=== PATIENT | male | born 1975 | race Caucasian/White ===

== ENCOUNTER 2021-04-11 05:29 | Observation (INO) ==
[2021-04-11] MEDS: Nitroglycerin 0.4 MG TAB.SUBL SL PRN ×4 (06:07→21:28)
[2021-04-11 06:08] LABS: Basophils # 0.1 K/mcL (0.0-0.2); Basophils % 0.9 %; Eosinophils # 0.2 K/mcL (0.0-0.6); Eosinophils % 3.4 %; Hematocrit 40.7 % (37.5-50.1); Immature Granulocytes % 0.4 % (0-4); Lymphocytes # 2.4 K/mcL (0.6-4.6); Lymphocytes % 35.5 %; Mean Corpuscular HGB Conc 34.4 g/dL (31.6-35.5); Mean Corpuscular Hemoglobin 29.7 pg (28.0-33.3); Mean Corpuscular Volume 86.4 fL (83.0-100.0); Mean Platelet Volume 10.4 fL (9.4-12.4); Monocytes # 0.7 K/mcL (0.0-1.3); Neutrophils # 3.4 K/mcL (1.6-8.9); Platelet Count 213 K/mcL (140-400); Red Blood Count 4.71 M/mcL (4.19-5.50); Red Cell Distribution Width 11.9 % (11.5-14.5); Segmented Neutrophils % 49.8 %; White Blood Count 6.8 K/mcL (4.3-11.1)
[2021-04-11 06:23] LABS: BUN/Creatinine Ratio 14 (6-26); Blood Urea Nitrogen 10 mg/dL (6-20); Calcium 9.2 mg/dL (8.6-10.3); Carbon Dioxide 24 mEq/L (23-29); Chloride 100 mEq/L (98-107); Glucose 318 mg/dL (70-105); Osmolality,Calculated 287 (280-300); Potassium 3.8 mEq/L (3.5-5.1); Sodium 133 mEq/L (136-145); Troponin I < 0.03 ng/mL (< 0.04); eGFR For African Americans > 60 (> 60); eGFR For Non-African Americans > 60 (> 60)
[2021-04-11] MEDS ORDERED: Isovue-370 500 ML BOTTLE IVP ONE (06:33)
[2021-04-11] MEDS ORDERED: Naloxone 0.4 MG/ML INJ IVP PRN (11:06)
[2021-04-11] MEDS ORDERED: Morphine Sulfate 2 MG/ML SYRINGE IVP ONE (12:02)
[2021-04-11] MEDS ORDERED: *HR* Dextrose 50 % in Water (Vial) 50 ML VIAL IVP PRN (13:51)
[2021-04-11] MEDS ORDERED: Dextrose Gel 15 GM/37.5 ML TUBE PO PRN ×2 (13:51)
[2021-04-11] MEDS ORDERED: GI Cocktail 40 ML EACH PO ONE (13:59)
[2021-04-11] MEDS: D5% in Water 1,000 ML IVC PRN (15:33)
[2021-04-11] MEDS: Insulin LISPRO 300 UNITS/3 ML VIAL SUBQ SCH ×2 (15:43→17:18)
[2021-04-11] MEDS ORDERED: Insulin LISPRO 300 UNITS/3 ML VIAL SUBQ SCH (21:00)
[2021-04-12] MEDS: D5% in Water 1,000 ML IVC PRN (01:14)
[2021-04-12 03:36] LABS: Chol/HDL Ratio 5.5 (0-4.9)
[2021-04-12] MEDS ORDERED: Regadenoson 0.4 MG/5 ML SYRINGE IVP ONE (06:24)
[2021-04-12 06:59] LABS: Estimated Average Glucose 306 mg/dl; Hemoglobin A1C 12.3 %
[2021-04-12] MEDS: Insulin LISPRO 300 UNITS/3 ML VIAL SUBQ SCH ×2 (08:07→11:44)
[2021-04-12] MEDS ORDERED: lisinopriL 5 MG TABLET PO SCH (09:00)
[2021-04-12] MEDS ORDERED: Aspirin 81 MG TAB.CHEW PO SCH (09:00)
[2021-04-12 10:41] VITALS: BP 126/76
== END 2021-04-12 12:08 | disposition home or self-care (01) ==
LOC: 3ANU 05:29 → EMEROOARM 05:29 → 3ANU 13:43
PROVIDERS: ADMIT Internal Medicine; ATTEND Internal Medicine